=== PATIENT | male | born 1960 | race American Indian/Alaskan Native ===

== ENCOUNTER 2020-08-07 10:11 | Emergency (ER) | payer OTHER ==
[2020-08-07] MEDS ORDERED: TETANUS,DIPH,PERTUSS(ACELL) VACCINE 0.5 ML SYRINGE IM ONE (10:49)
--- NOTE | 2020-08-07 10:49 | Event Note ---
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 Further treatment and workup at subsequent clinical providers discretion. Patient/guardian urged not to elope from the ED as their condition may be serious if not clinically assessed and managed. Initial orders include: tdap, lac repair
[2020-08-07 10:51] VITALS: BP 147/90
--- NOTE | 2020-08-07 12:21 | Emergency Department Report ---
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 Approx 3 cm lac, superficial with blood controlled on arrival. neurovasc distal circulation intact. ED Review of Systems ROS: Stated complaint: CUT LT FOREARM/LAC Other details as noted in HPI Comment: All other systems reviewed and negative ED Past Medical Hx - Past Medical History Hx Hypertension: Yes Laceration Physical Exam - Exam General: Vital signs noted. No distress. Alert and acting appropriately. Wound Length (cm): 3 Laceration Location: Upper Extremity Laceration Exam: Yes Normal Distal CMS, No Foreign Body, No Exposed Tendon, Vessel, or Nerve, No Tendon Injury ED Course Vital Signs 08/07/20 10:49 Temperature 98.1 F Pulse Rate 83 Respiratory 20 Rate Blood Pressure 147/90 [Right] O2 Sat by Pulse 99 Oximetry - Laceration /Wound Repair l arm Wound Location: upper extremity Irrigated w/ Saline (ccs): 100 Betadine Prep?: Yes Anesthesia: 1% Lidocaine Volume Anesthetic (ccs): 3 Wound Debrided: minimal Wound Repaired With: sutures Suture Size/Type: 4:0 Number of Sutures: 4 Layer Closure?: No Sterile Dressing Applied?: Yes Progress: tolerated well ED Medical Decision Making - Medical Decision Making superficial lac repair wound cleaned and dressed tdap given dc home with dc plan of care. pt verbalizes understanding. Vital Signs (72 hours) 08/07/20 10:49 Temperature 98.1 F Pulse Rate 83 Respiratory 20 Rate Blood Pressure 147/90 [Right] O2 Sat by Pulse 99 Oximetry - Differential Diagnosis lac Critical care attestation.: If time is entered above; I have spent that time in minutes in the direct care of this critically ill patient, excluding procedure time. ED Disposition Clinical Impression: Laceration Disposition: DC-01 TO HOME OR SELFCARE Is pt being admited?: No Does the pt Need Aspirin: No Condition: Stable Instructions: Laceration Care, Adult Additional Instructions: ICE TODAY KEEP COVERED TOMORROW TAKE DRESSING DOWN, WASH WITH SOAP AND WATER AND REAPPLY DRESSING STITCHES NEED TO COME OUT IN 1 WEEK MOTRIN OR TYLENOL FOR PAIN TETANUS WAS UPDATED TODAY Referrals: LISA ENAMORADO MD [Staff Physician] - 3-5 Days Time of Disposition: 12:55
[2020-08-07] MEDS ORDERED: SODIUM CHLORIDE 0.9% IRR 500 ML BOTTLE IR ONE (12:31)
[2020-08-07] MEDS ORDERED: LIDOCAINE-MPF (1%) 10 MG/1 ML VIAL 5 ML INFILTRATI ONE (12:32)
== END 2020-08-07 12:59 | disposition home or self-care (01) ==
LOC: ED 10:11
DX: S51.812A Laceration without foreign body of left forearm, initial encounter (principal); I10 Essential (primary) hypertension; W26.9XXA Contact with unspecified sharp object(s), initial encounter; Y93.89 Activity, other specified; Y92.89 Other specified places as the place of occurrence of the external cause; Y99.8 Other external cause status
CPT/HCPCS: 90471; 90715; 99281